=== PATIENT | female | born 1965 | race Caucasian/White ===

== ENCOUNTER 2018-12-04 09:39 | Emergency (ER) | payer OTHER ==
[2018-12-04] MEDS ORDERED: KETOROLAC 30 MG/ML INJ ONE (10:34)
--- NOTE | 2018-12-04 10:50 | RAD REPORT ---
EXAM DESCRIPTION: RAD - Ankle Left 3 View -12/04/2018 10:18 am CLINICAL HISTORY: Left ankle pain status post injury FINDINGS: No fracture or dislocation is seen.
--- NOTE | 2018-12-04 11:15 | ER ---
Nurse's Notes [facility] Name: Prabha Camejo Age: 53 yrs Sex: Female : 1965 Arrival Date: 12/04/2018 Time: 09:43 Bed 12 Private MD: Diagnosis: Contusion of left ankle Presentation: 12/04 09:48 Presenting complaint: Shut front door on left ankle 2 days ago, now c/o burning pain hb 10/10. Transition of care: patient was not received from another setting of care. Onset of symptoms was December 02, 2018. Risk Assessment: Do you want to hurt yourself or someone else? Patient reports no desire to harm self or others. Initial Sepsis Screen: Does the patient meet any 2 criteria? No. Patient's initial sepsis screen is negative. Does the patient have a suspected source of infection? No. Patient's initial sepsis screen is negative. Care prior to arrival: Medication(s) given: Motrin, at 0700. 09:48 Method Of Arrival: Ambulatory hb 09:48 Acuity: VIRGIL 4 hb Triage Assessment: 09:50 General: Appears in no apparent distress. Behavior is calm, cooperative. Pain: Pain hb currently is 10 out of 10 on a pain scale. EENT: No signs and/or symptoms were reported regarding the EENT system. Neuro: Level of Consciousness is awake, alert, obeys commands, Oriented to person, place, time, situation. Cardiovascular: Capillary refill < 3 seconds Patient's skin is warm and dry. Respiratory: Airway is patent Respiratory effort is even, unlabored, Respiratory pattern is regular, symmetrical. GI: No signs and/or symptoms were reported involving the gastrointestinal system. : No signs and/or symptoms were reported regarding the genitourinary system. Derm: Skin is intact, is healthy with good turgor, Bruising that is purple, left inner ankle. Musculoskeletal: Reports left ankle pain. 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 - Social history:: Smoking status: Patient uses tobacco products, smokes one-half pack cigarettes per day. - Ebola Screening: : No symptoms or risks identified at this time. Screenin:50 Abuse screen: Denies threats or abuse. Denies injuries from another. Nutritional hb screening: No deficits noted. Tuberculosis screening: No symptoms or risk factors identified. Fall Risk None identified. Assessment: 09:50 General: see triage assessment. hb 10:38 Reassessment: Patient appears in no apparent distress at this time. Patient and/or hb family updated on plan of care and expected duration. Pain level reassessed. Patient is alert, oriented x 3, equal unlabored respirations, skin warm/dry/pink. 11:22 Reassessment: Patient appears in no apparent distress at this time. Patient and/or hb family updated on plan of care and expected duration. Pain level reassessed. Patient is alert, oriented x 3, equal unlabored respirations, skin warm/dry/pink. Vital Signs: 09:50 BP 136 / 86; Pulse 84; Resp 16; Temp 97.7; Pulse Ox 100% on R/A; Weight 90.72 kg; hb Height 5 ft. 8 in. (172.72 cm); Pain 10/10; 09:50 Body Mass Index 30.41 (90.72 kg, 172.72 cm) hb ED Course: 09:43 Patient arrived in ED. rg4 09:49 Triage completed. hb 09:50 Arm band placed on. hb 09:50 Patient has correct armband on for positive identification. Call light in reach. hb 10:02 Gianfranco Espinoza PA is PHCP. jmm 10:02 Marcus Parisi MD is Attending Physician. jmm 10:09 Josh Martinez, HENRIK is Primary Nurse. sg 10:19 Ankle Left 3 View XRAY In Process Unspecified. EDMS 11:22 No provider procedures requiring assistance completed. Patient did not have IV access hb during this emergency room visit. Administered Medications: 10:38 Drug: Ketorolac 30 mg Route: IM; Site: right deltoid; hb 11:15 Follow up: Response: No adverse reaction hb Outcome: 11:13 Discharge ordered by MD. rhoades 11:22 Discharged to home ambulatory. hb 11:22 Condition: stable 11:22 Discharge instructions given to patient, Instructed on discharge instructions, follow up and referral plans. medication usage, Demonstrated understanding of instructions, follow-up care, medications, Prescriptions given X 1. 11:23 Patient left the ED. hb Signatures: Dispatcher [employer] EDJosh Hart RN RN sg Mickail, Joel, PA PA jmm Baxter, Heather, RN RN hb Garcia, Rubi rg4
--- NOTE | 2018-12-04 11:15 | EDPHYS ---
Physician Documentation [facility] Name: Prabha Camejo Age: 53 yrs Sex: Female : 1965 Arrival Date: 12/04/2018 Time: 09:43 Bed 12 Private MD: ED Physician Marcus Parisi HPI: 12/04 10:43 This 53 yrs old Female presents to ER via Ambulatory with complaints of Ankle jmm Injury. 10:43 The patient presents with an injury. Onset: The symptoms/episode began/occurred jmm acutely. Associated signs and symptoms: Pertinent positives: swelling, tingling. This is a 53 year old female with a history of depression, migraines, seizures, htn that presents to the ED with complaints of left ankle pain after accidently shutting the door on her foot. . 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 - Social history:: Smoking status: Patient uses tobacco products, smokes one-half pack cigarettes per day. - Ebola Screening: : No symptoms or risks identified at this time. ROS: 10:43 Constitutional: Negative for fever, chills, and weight loss, Cardiovascular: Negative jmm for chest pain, palpitations, and edema, Respiratory: Negative for shortness of breath, cough, wheezing, and pleuritic chest pain. 10:43 MS/extremity: Positive for ecchymosis, pain. 10:43 All other systems are negative. Exam: 10:43 Constitutional: This is a well developed, well nourished patient who is awake, alert, jmm and in no acute distress. Head/Face: atraumatic. Eyes: EOMI, no conjunctival erythema appreciated ENT: Moist Mucus Membranes Neck: Trachea midline, Supple Chest/axilla: Normal chest wall appearance and motion. Cardiovascular: Regular rate and rhythm. No edema appreciated Respiratory: Normal respirations, no respiratory distress appreciated Abdomen/GI: Non distended, soft Back: Normal ROM 10:43 Musculoskeletal/extremity: left medial malleolus is tender to palpation. . 10:43 Skin: ecchymosis noted to the left medial ankle. 10:43 Neuro: Orientation: is normal, Mentation: is normal, Memory: is normal. 10:43 Psych: Behavior/mood is pleasant, cooperative. Vital Signs: 09:50 BP 136 / 86; Pulse 84; Resp 16; Temp 97.7; Pulse Ox 100% on R/A; Weight 90.72 kg; hb Height 5 ft. 8 in. (172.72 cm); Pain 12/30; 09:50 Body Mass Index 30.41 (90.72 kg, 172.72 cm) hb MDM: 10:15 Patient medically screened. [facility] 11:09 Data reviewed: vital signs, nurses notes. Counseling: I had a detailed discussion with [facility] the patient and/or guardian regarding: the historical points, exam findings, and any diagnostic results supporting the discharge/admit diagnosis, radiology results, the need for outpatient follow up, to return to the emergency department if symptoms worsen or persist or if there are any questions or concerns that arise at home. ED course: Imaging studies negative. Patient advised to follow up with pcp for reevaluation. Patient understood and agrees with the plan of care. . 12/04 09:51 Order name: Ankle Left 3 View XRAY; Complete Time: 10:52 hb 12/04 10:51 Order name: Antwan wrap-joint; Complete Time: 11:02 [facility] Administered Medications: 10:38 Drug: Ketorolac 30 mg Route: IM; Site: right deltoid; 11:15 Follow up: Response: No adverse reaction hb Disposition: 12/04/18 11:13 Discharged to Home. Impression: Contusion of left ankle. - Condition is Stable. - Discharge Instructions: Ankle Pain. - Prescriptions for orphenadrine citrate 100 mg Oral Tablet Sustained Release - take 1 tablet by ORAL route 2 times per day As needed; 20 tablet. - Medication Reconciliation Form, Thank You Letter, Antibiotic Education, Prescription Opioid Use form. - Follow up: Private Physician; When: 2 - 3 days; Reason: Recheck today's complaints, Continuance of care, Re-evaluation by your physician. Addendum: 12/06/2018 09:51 Co-signature as Attending Physician, Marcus Parisi MD I agree with the assessment and k dr plan of care. Signatures: Dispatcher [employer] EDMS Marcus Parisi MD MD [facility] Gianfranco Espinoza PA PA jmm Baxter, Heather, RN RN Corrections: (The following items were deleted from the chart) 12/04 11:23 11:13 12/04/2018 11:13 Discharged to Home. Impression: Contusion of left ankle. hb Condition is Stable. Forms are Medication Reconciliation Form, Thank You Letter, Antibiotic Education, Prescription Opioid Use. Follow up: Private Physician; When: 2 - 3 days; Reason: Recheck today's complaints, Continuance of care, Re-evaluation by your physician. [place]
[2018-12-04 11:46] VITALS: BP 136/86; TEMP 97.7; O2SAT 100
== END 2018-12-04 11:23 | disposition home or self-care (01) ==
LOC: ER 09:39
DX: S90.02XA Contusion of left ankle, initial encounter (principal); W22.8XXA Striking against or struck by other objects, initial encounter; Y93.9 Activity, unspecified; Y92.9 Unspecified place or not applicable; Z88.0 Allergy status to penicillin; I10 Essential (primary) hypertension; F32.9 Major depressive disorder, single episode, unspecified; F17.210 Nicotine dependence, cigarettes, uncomplicated
CPT/HCPCS: 96372; 99283

== ENCOUNTER 2020-05-28 18:02 | Inpatient (IN) | payer BC ==
--- OUTSIDE RECORDS SUMMARY | 2020-05-28 18:05 | XMS REPORT | Continuity of Care Document ---
:1965 Author Organization [facility] t Address [address] [place] [address] Care Team Providers Name Role Phone Provider, Urgent Care Attending Clinician Unavailable Lab, Fam Pob I Attending Clinician Unavailable Lab, Covid Attending Clinician Unavailable Problems This patient has no known problems. Allergies, Adverse Reactions, Alerts This patient has no known allergies or adverse reactions. Medications This patient has no known medications. Procedures This patient has no known procedures. Encounters Start End Encounter Admission Attending Care Care Encounter Source Date/Time Date/Time Type Type Clinicians Facility Department ID 2020-04-16 2020-04-16 Urgent Provider, [facility] [id number] 17:50:18 18:10:18 Care [facility] [id number] [facility] [id number] Professio [id number] [address] 2020-03-09 2020-03-09 Telephone Provider, DALIA [id number] 00:00:00 00:00:00 Ang Urgent EULA [id number] [facility] [id number] 2020-03-07 2020-03-07 Laboratory Lab, Adc [facility] [id number] 11:36:20 12:08:46 Only Fam Pob I Health [id number] [place] [id number] Professio [phone] nal [address] 2020-03-07 2020-03-07 Letter Lab, Pcp [facility] [id number] 00:00:00 00:00:00 (Out) [facility] [id number] [place] [id number] [facility] [phone] [facility] [address] Results This patient has no known results.
[2020-05-28] MEDS ORDERED: ASPIRIN 81 MG CHEWABLE TABLET ONE (19:22)
[2020-05-28] MEDS ORDERED: LORazepam 2 MG/ML VIAL ONE (19:22)
[2020-05-28] MEDS ORDERED: METOPROLOL TAR 25 MG TAB ONE (19:23)
[2020-05-28] MEDS ORDERED: ONDANSETRON 4 MG/2 ML VIAL ONE (19:23)
[2020-05-28] MEDS ORDERED: FAMOTIDINE 20 MG/2 ML VIAL IV ONE (19:23)
[2020-05-28] MEDS ORDERED: MORPHINE 2 MG/ML SYR ONE (19:23)
[2020-05-28 19:25] LABS: Absolute Lymphocytes (CBC) 2.7 K/uL (0.7-4.9); Basophils % 0.9 % (0-1.3); Hematocrit 41.9 % (36.0-45.0); MPV 9.8 fL (7.6-11.3); RBC Red Blood Cell Count 4.56 M/uL (3.86-4.86)
[2020-05-28 19:29] LABS: Protime INR 1.01
[2020-05-28] MEDS ORDERED: ASPIRIN EC 81 MG TAB PO ONE (19:41)
[2020-05-28 19:42] LABS: ALT/SGPT 24 U/L (12-78); AST/SGOT 14 U/L (15-37); Albumin 3.9 g/dL (3.4-5.0); Alkaline Phosphatase 136 U/L (45-117); BUN Blood Urea Nitrogen 11 mg/dL (7-18); Bicarbonate 26 mmol/L (21-32); Bilirubin Direct < 0.1 mg/dL (0-0.2); Bilirubin Total 0.1 mg/dL (0.2-1.0); Glucose Level 85 mg/dL (74-106); Lipase 98 U/L (73-393); Magnesium 2.1 mg/dL (1.8-2.4); NT PRO-BNP 13 pg/mL (<125); Potassium 3.5 mmol/L (3.5-5.1); Protein, Total 7.6 g/dL (6.4-8.2); Sodium Level 138 mmol/L (136-145); Troponin (Emerg Dept Use Only) < 0.02 ng/mL (0.0-0.045)
--- NOTE | 2020-05-28 19:57 | RAD REPORT ---
EXAM DESCRIPTION: RAD - Chest Single View - 05/28/2020 7:40 pm CLINICAL HISTORY: CHEST PAIN Chest pain. COMPARISON: No comparisons FINDINGS: Portable technique limits examination quality. Calcified granuloma is present right mid lung. The lungs otherwise clear. The heart is normal in size . No displaced fractures. IMPRESSION: No acute intrathoracic process suspected.
--- NOTE | 2020-05-28 20:03 | EDPHYS ---
Physician Documentation [facility] Name: Prabha Camejo Age: 54 yrs Sex: Female : 1965 Arrival Date: 05/28/2020 Time: 18:06 Bed 17 Private MD: ED Physician Aguila Fitzpatrick HPI: 05/28 18:47 This 54 yrs old Female presents to ER via Ambulatory with complaints of Chest pao Pain, Abnormal EKG. 18:47 The patient or guardian reports chest pain that is located primarily in the substernal pao area, anterior chest wall, bilaterally. Onset: 2 day(s) ago. The pain radiates to right jaw. Associated signs and symptoms: Pertinent positives: lightheadedness, near-syncope, shortness of breath. The chest pain is described as a heaviness, a pressure. Duration: The patient or guardian reports multiple episodes, with no pattern. Modifying factors: The symptoms are alleviated by nothing. the symptoms are aggravated by activity, breathing, exertion. Severity of pain: At its worst the pain was moderate in the emergency department the pain is unchanged. 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 - Social history:: Smoking status: Patient reports the use of cigarette tobacco products, smokes one-half pack cigarettes per day. - Family history:: not pertinent. ROS: 18:47 Constitutional: Negative for fever, chills, and weight loss, Eyes: Negative for injury, pao pain, redness, and discharge, ENT: Negative for injury, pain, and discharge, Neck: Negative for injury, pain, and swelling, Abdomen/GI: Negative for abdominal pain, nausea, vomiting, diarrhea, and constipation, Back: Negative for injury and pain, : Negative for injury, bleeding, discharge, and swelling, MS/Extremity: Negative for injury and deformity, Skin: Negative for injury, rash, and discoloration, Neuro: Negative for headache, weakness, numbness, tingling, and seizure, Psych: Negative for depression, anxiety, suicide ideation, homicidal ideation, and hallucinations, Allergy/Immunology: Negative for hives, rash, and allergies, Endocrine: Negative for neck swelling, polydipsia, polyuria, polyphagia, and marked weight changes, Hematologic/Lymphatic: Negative for swollen nodes, abnormal bleeding, and unusual bruising. 18:47 Cardiovascular: Positive for chest pain, of the chest. 18:47 Respiratory: Positive for shortness of breath, on exertion. Exam: 18:47 Constitutional: This is a well developed, well nourished patient who is awake, alert, pao and in no acute distress. Head/Face: Normocephalic, atraumatic. Eyes: Pupils equal round and reactive to light, extra-ocular motions intact. Lids and lashes normal. Conjunctiva and sclera are non-icteric and not injected. Cornea within normal limits. Periorbital areas with no swelling, redness, or edema. ENT: Nares patent. No nasal discharge, no septal abnormalities noted. Tympanic membranes are normal and external auditory canals are clear. Oropharynx with no redness, swelling, or masses, exudates, or evidence of obstruction, uvula midline. Mucous membranes moist. Neck: Trachea midline, no thyromegaly or masses palpated, and no cervical lymphadenopathy. Supple, full range of motion without nuchal rigidity, or vertebral point tenderness. No Meningismus. Chest/axilla: Normal chest wall appearance and motion. Nontender with no deformity. No lesions are appreciated. Cardiovascular: Regular rate and rhythm with a normal S1 and S2. No gallops, murmurs, or rubs. Normal PMI, no JVD. No pulse deficits. Respiratory: Lungs have equal breath sounds bilaterally, clear to auscultation and percussion. No rales, rhonchi or wheezes noted. No increased work of breathing, no retractions or nasal flaring. Abdomen/GI: Soft, non-tender, with normal bowel sounds. No distension or tympany. No guarding or rebound. No evidence of tenderness throughout. Back: No spinal tenderness. No costovertebral tenderness. Full range of motion. Skin: Warm, dry with normal turgor. Normal color with no rashes, no lesions, and no evidence of cellulitis. MS/ Extremity: Pulses equal, no cyanosis. Neurovascular intact. Full, normal range of motion. Neuro: Awake and alert, GCS 15, oriented to person, place, time, and situation. Cranial nerves II-XII grossly intact. Motor strength 5/5 in all extremities. Sensory grossly intact. Cerebellar exam normal. Normal gait. Psych: Awake, alert, with orientation to person, place and time. Behavior, mood, and affect are within normal limits. 18:47 Musculoskeletal/extremity: DVT Exam: No signs of deep vein thrombosis. no pain, no swelling, no tenderness, negative Homans' sign noted on exam, no appreciated bluish discoloration, no erythema, no increased warmth. Vital Signs: 18:11 BP 125 / 89; Pulse 81; Resp 17; Temp 97.3; Pulse Ox 100% ; Weight 97.52 kg; Height 5 ll1 ft. 8 in. (172.72 cm); Pain 8/10; 21:31 Weight 97.93 kg; ll2 21:35 BP 121 / 75; Pulse 62; Resp 16; Pulse Ox 99% on R/A; ll2 23:00 BP 134 / 88; Pulse 69; Resp 18; Pulse Ox 98% on R/A; ll2 0309 01:00 BP 133 / 61; Pulse 71; Resp 12; Pulse Ox 97% on R/A; ll2 02:30 BP 113 / 78; Pulse 66; Resp 14; Pulse Ox 99% on R/A; ll2 03:30 BP 118 / 75; Pulse 63; Resp 17; Pulse Ox 96% on R/A; ll2 08 21:31 Body Mass Index 32.83 (97.93 kg, 172.72 cm) ll2 MDM: 05/28 18:22 Patient medically screened. pao 18:51 Differential diagnosis: abnormal EKG, acute myocardial infarction, acute pericarditis, pao cholecystitis, Cholelithiasis hiatal hernia, myocarditis, pancreatitis, peptic ulcer disease, pneumonia, pulmonary embolus, stable angina, thoracic aortic disection, unstable angina. HEART Score: History: Highly Suspicious (2), ECG: Non specific repolarization disturbance / LBTB / PM (1), Age: > 45 and < 65 years (1), Risk Factors: > or = 3 Risk factors for atherosclerotic disease (2), [Hypertension] [Active Smoker] [+ Family HX] [Obesity] Troponin: < or = 1 x Normal Limit (0). The patient was given aspirin in the Emergency Department. The patient's deep vein thrombosis risk score was calculated as follows: Total Score: 0. This patient was found to be at low risk for a deep vein thrombosis by using the Well's assessment criteria. The patient's pulmonary embolism risk score was calculated as follows: Total Score: 0-2 points. This patient was found to be at low risk for a pulmonary embolism by using the Well's assessment criteria. MALINDA Risk Score: 1 - Three or more CAD risk factors, [Family Hx], [HTN], [Elevated Cholesterol], [Active Smoker]. Data reviewed: vital signs, nurses notes, lab test result(s), EKG, radiologic studies, CT scan, plain films. 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 Test interpretation: by ED physician or midlevel provider: ECG, plain radiologic studies. Counseling: I had a detailed discussion with the patient and/or guardian regarding: the historical points, exam findings, and any diagnostic results supporting the discharge/admit diagnosis, the presence of at least one elevated blood pressure reading (>120/80) during this emergency department visit, lab results, radiology results, the need for further work-up and treatment in the hospital. 05/28 18:46 Order name: Basic Metabolic Panel [facility] 05/28 18:46 Order name: CBC with Diff [facility] 05/28 18:46 Order name: LFT's 05/28 18:46 Order name: Magnesium [facility] 05/28 18:46 Order name: NT PRO-BNP [facility] 05/28 18:46 Order name: PT-INR; Complete Time: 19:58 [facility] 05/28 18:46 Order name: Troponin (emerg Dept Use Only); Complete Time: 19:58 [facility] 05/28 18:46 Order name: Lipase; Complete Time: 19:58 [facility] 05/28 18:47 Order name: Basic Metabolic Panel; Complete Time: 19:58 EDDC 05/28 18:47 Order name: CBC with Automated Diff; Complete Time: 19:58 EDMS 05/28 18:47 Order name: Liver (Hepatic) Function; Complete Time: 19:58 EDMS 05/28 18:47 Order name: Magnesium; Complete Time: 19:58 EDDC 05/28 18:47 Order name: NT PRO-BNP; Complete Time: 19:58 [facility] 05/28 18:46 Order name: XRAY Chest (1 view); Complete Time: 19:58 [facility] 05/28 18:46 Order name: EKG; Complete Time: 18:47 [facility] 05/28 20:22 Order name: Chest Abd Pelvis Wo Con; Complete Time: 21:01 [facility] 05/28 20:32 Order name: SARS-COV-2 RT PCR; Complete Time: 21:01 [facility] 05/28 21:21 Order name: CONS Physician Consult [facility] 05/29 02:04 Order name: Troponin I [facility] 05/28 18:46 Order name: Cardiac monitoring; Complete Time: 19:28 [facility] 05/28 18:46 Order name: EKG - Nurse/Tech; Complete Time: 19:28 [facility] 05/28 18:46 Order name: IV Saline Lock; Complete Time: 19:28 [facility] 05/28 18:46 Order name: Labs collected and sent; Complete Time: 19:28 [facility] 05/28 18:46 Order name: O2 Per Protocol; Complete Time: 19:28 [facility] 05/28 18:46 Order name: O2 Sat Monitoring; Complete Time: 19:28 [facility] 05/28 20:24 Order name: Bilateral blood pressure; Complete Time: 01:39 [facility] Administered Medications: Discontinued: Heparin ([place] Drip) 12 units/kg/hr - (HEParin 29450 units, D5W 500 ml) IV at calculated rate Per protocol; Max initial rate 1000 units/hr 19:36 Drug: morphine 2 mg Route: IVP; Site: left antecubital; ll2 19:36 Drug: Zofran (Ondansetron) 4 mg Route: IVP; Site: left antecubital; ll2 19:37 Drug: Aspirin Chewable Tablet 324 mg Route: PO; ll2 19:37 Drug: Pepcid 20 mg Route: IVP; Site: left antecubital; ll2 19:37 Drug: Lopressor 25 mg Route: PO; ll2 19:37 Drug: Ativan 1 mg Route: IVP; Site: left antecubital; ll2 21:44 Drug: Heparin (SD-Bolus No thrombolytic) - HEParin 60 units/kg {Co-Signature: mg2 ll2 (Ruddy Mckeon RN).} Route: IVP; Site: right hand; 22:45 Follow up: Response: Other ll2 21:45 Drug: Heparin (SD Drip) 12 units/kg/hr - (HEParin 96868 units, D5W 500 ml) ll2 {Co-Signature: mg2 (Ruddy Mckeon RN).} Route: IV; Rate: calculated rate; Site: right hand; 05/29 01:39 Not Given (Patient Refused): Nicoderm CQ 21 mg/24 hr 1 patches Transdermal once; if ll2 needed for tobacco withdrawal Disposition: 05/28/20 20:02 Hospitalization ordered by Sheldon Rodriguez for Observation. Preliminary diagnosis are Angina pectoris, Essential (primary) hypertension, Anxiety disorder, unspecified, Tobacco abuse counseling, Tobacco use. - Bed requested for Telemetry/MedSurg (observation). - Status is Observation. ll2 - Condition is Stable. - Problem is new. - Symptoms have improved. Signatures: Dispatcher [employer] EDMS Aguila Fitzpatrick MD MD cha Garcia, Cindy, RN RN Rosy Hines RN RN ll2 Kee Sutton RN RN ll1 Ruddy Mckeon RN mg2 Corrections: (The following items were deleted from the chart) 05/28 19:55 18:47 CORONAVIRUS+MR.LAB.BRZ ordered. EDDC EDMS 20:22 18:47 Angio Aorta For Dissection+CT.RAD.BRZ ordered. [facility] EDMS 23:04 20:02 Hospitalization Ordered by Sheldon Rodriguez for Observation. Preliminary diagnosis cg is Angina pectoris; Essential (primary) hypertension; Anxiety disorder, unspecified; Tobacco abuse counseling; Tobacco use. Bed requested for Telemetry/MedSurg (observation). Status is Observation. Condition is Stable. Problem is new. Symptoms have improved. [facility] 05/29 03:00 03/08 23:04 05/28/2020 20:02 Hospitalization Ordered by Sheldon Rodriguez for Observation. cg Preliminary diagnosis is Angina pectoris; Essential (primary) hypertension; Anxiety disorder, unspecified; Tobacco abuse counseling; Tobacco use. Bed requested for [facility] ER HOLD. Status is Observation. Condition is Stable. Problem is new. Symptoms have improved. 05/29 04:28 03:00 05/28/2020 20:02 Hospitalization Ordered by Sheldon Rodriguez for Observation. ll2 Preliminary diagnosis is Angina pectoris; Essential (primary) hypertension; Anxiety disorder, unspecified; Tobacco abuse counseling; Tobacco use. Bed requested for Telemetry/MedSurg (observation). Status is Observation. Condition is Stable. Problem is new. Symptoms have improved. cg
--- NOTE | 2020-05-28 20:03 | ER ---
Nurse's Notes [facility] Name: Prabha Camejo Age: 54 yrs Sex: Female : 1965 Arrival Date: 05/28/2020 Time: 18:06 Bed 17 Private MD: Diagnosis: Angina pectoris;Essential (primary) hypertension;Anxiety disorder, unspecified;Tobacco abuse counseling;Tobacco use Presentation: 05/28 18:11 Chief complaint: Patient states: CP and SOB for at least month. Was doing her pre-op ll1 today for cardiac cath on , EKG was abnormal so she was sent here for further eval. Coronavirus screen: Client denies travel out of the [place] in the last 14 days. At this time, the client does not indicate any symptoms associated with coronavirus-19. Ebola Screen: Patient denies travel to an Ebola-affected area in the 21 days before illness onset. Initial Sepsis Screen: Does the patient meet any 2 criteria? No. Patient's initial sepsis screen is negative. Does the patient have a suspected source of infection? No. Patient's initial sepsis screen is negative. Risk Assessment: Do you want to hurt yourself or someone else? Patient reports no desire to harm self or others. Onset of symptoms was April 30, 2020. 18:11 Method Of Arrival: Ambulatory ll1 18:11 Acuity: VIRGIL 3 ll1 MANAGER DOMESTIC: 05/29 04:28 LMP N/A - Post-menopause ll2 Historical: - Allergies: 05/28 18:14 PENICILLINS; ll1 - PMHx: 18:14 Depression; Hypertension; Migraines; Seizures; Anxiety; ll1 - PSHx: 18:14 ; ll1 - Immunization history:: Flu vaccine is not up to date. - Social history:: Smoking status: Patient reports the use of cigarette tobacco products, smokes one-half pack cigarettes per day. - Family history:: not pertinent. Screenin:35 Abuse screen: Denies threats or abuse. Nutritional screening: No deficits noted. ll2 Tuberculosis screening: No symptoms or risk factors identified. Fall Risk None identified. Assessment: 21:32 General: Appears in no apparent distress. Behavior is calm, cooperative, appropriate ll2 for age. Pain: Pain does not radiate. Pain began suddenly. Neuro: Level of Consciousness is awake, alert, obeys commands, Oriented to person, place, time, situation. Cardiovascular: Patient's skin is warm and dry. Respiratory: Airway is patent Respiratory effort is even, unlabored, Respiratory pattern is regular, symmetrical. GI: No signs and/or symptoms were reported involving the gastrointestinal system. : No signs and/or symptoms were reported regarding the genitourinary system. EENT: No signs and/or symptoms were reported regarding the EENT system. Derm: Skin is intact, is healthy with good turgor, Skin is dry, Skin is pink, warm \T\ dry. 05/29 01:52 Reassessment: spoke to pt's mother over the phone who said pt is upset and worried then bb I spoke to the pt who is extremely upset and refusing any further interventions from this RN offered pt a room upstairs and she refused. 02:52 Reassessment: Patient and/or family updated on plan of care and expected duration. Pain ll2 level reassessed. Patient is alert, oriented x 3, equal unlabored respirations, skin warm/dry/pink. 04:20 Reassessment: Patient and/or family updated on plan of care and expected duration. Pain ll2 level reassessed. Patient is alert, oriented x 3, equal unlabored respirations, skin warm/dry/pink. report called to BASIL dey pt wheeled to floor via wheelchair with tech. Vital Signs: 05/28 18:11 BP 125 / 89; Pulse 81; Resp 17; Temp 97.3; Pulse Ox 100% ; Weight 97.52 kg; Height 5 ll1 ft. 8 in. (172.72 cm); Pain 8/10; 21:31 Weight 97.93 kg; ll2 21:35 BP 121 / 75; Pulse 62; Resp 16; Pulse Ox 99% on R/A; ll2 23:00 BP 134 / 88; Pulse 69; Resp 18; Pulse Ox 98% on R/A; ll2 05/29 01:00 BP 133 / 61; Pulse 71; Resp 12; Pulse Ox 97% on R/A; ll2 02:30 BP 113 / 78; Pulse 66; Resp 14; Pulse Ox 99% on R/A; ll2 03:30 BP 118 / 75; Pulse 63; Resp 17; Pulse Ox 96% on R/A; ll2 05/28 21:31 Body Mass Index 32.83 (97.93 kg, 172.72 cm) ll2 ED Course: 05/28 14:35 EKG done, by ED staff, reviewed by Aguila Fitzpatrick MD. jp3 18:06 Patient arrived in ED. mr 18:14 Triage completed. ll1 18:15 Arm band placed on. ll1 18:22 Aguila Fitzpatrick MD is Attending Physician. pao 19:02 Rosy Hines, BASIL is Primary Nurse. ll2 19:10 Initial lab(s) drawn, by tx, sent to lab. COVID swab sent to lab. Inserted saline lock: jp3 20 gauge in left antecubital area, using aseptic technique. Blood collected. Patient maintains SpO2 saturation greater than 95% on room air. 19:27 Placed in gown. Bed in low position. Call light in reach. Side rails up X 1. Warm jp3 blanket given. Verbal reassurance given. ekg monitor on. Pulse ox on. NIBP on. 19:40 XRAY Chest (1 view) In Process Unspecified. EDMS 20:00 Sheldon Rodriguez is Hospitalizing Provider. pao 20:22 Chest Abd Pelvis Wo Con In Process Unspecified. EDMS 03 04:24 No provider procedures requiring assistance completed. Patient admitted, IV remains in ll2 place. Administered Medications: Discontinued: Heparin ([place] Drip) 12 units/kg/hr - (HEParin 09600 units, D5W 500 ml) IV at calculated rate Per protocol; Max initial rate 1000 units/hr 05/28 19:36 Drug: morphine 2 mg Route: IVP; Site: left antecubital; ll2 19:36 Drug: Zofran (Ondansetron) 4 mg Route: IVP; Site: left antecubital; ll2 19:37 Drug: Aspirin Chewable Tablet 324 mg Route: PO; ll2 19:37 Drug: Pepcid 20 mg Route: IVP; Site: left antecubital; ll2 19:37 Drug: Lopressor 25 mg Route: PO; ll2 19:37 Drug: Ativan 1 mg Route: IVP; Site: left antecubital; ll2 21:44 Drug: Heparin ([place]-Bolus No thrombolytic) - HEParin 60 units/kg {Co-Signature: mg2 ll2 (Ruddy Gardose RN).} Route: IVP; Site: right hand; 22:45 Follow up: Response: Other ll2 21:45 Drug: Heparin ([place] Drip) 12 units/kg/hr - (HEParin 18459 units, D5W 500 ml) ll2 {Co-Signature: mg2 (Ruddy Mckeon RN).} Route: IV; Rate: calculated rate; Site: right hand; 05/29 01:39 Not Given (Patient Refused): Nicoderm CQ 21 mg/24 hr 1 patches Transdermal once; if ll2 needed for tobacco withdrawal Outcome: 05/28 20:02 Decision to Hospitalize by Provider. pao 05/29 04:25 Admitted to Tele accompanied by tech, via wheelchair, Report called to basil dey ll2 Condition: stable Instructed on the need for admit. 04:28 Patient left the ED. ll2 Signatures: Dispatcher [employer] Aguila Lou MD MD cha Rivera, Mary mr Shyanne Aguilera RN RN Malik Patiño jp3 Rosy Hines RN RN ll2 Kee Sutton RN RN ll1 Ruddy Mckeon RN mg2 Corrections: (The following items were deleted from the chart) 01:51 01:50 Reassessment: bautista baum
--- NOTE | 2020-05-28 20:32 | RAD REPORT ---
EXAM DESCRIPTION: CT - Chest Abd Pelvis Wo Con - 05/28/2020 8:20 pm CLINICAL HISTORY: Chest and abdomen pain. Dissection;Dyspnea;PE COMPARISON: No comparisons TECHNIQUE: A noncontrast examination was performed. All CT scans are performed using dose optimization technique as appropriate and may include automated exposure control or mA/KV adjustment according to patient size. FINDINGS: The lungs are clear.Benign calcified right upper lobe granuloma.No pleural or pericardial effusion.No intrathoracic adenopathy. The liver, spleen, pancreas, adrenal glands and kidneys are within normal limits. No bowel obstruction, free air, free fluid or abscess. Normal appendix. No pathologic lymphadenopath y in the abdomen or pelvis. Moderate degenerative change L5-S1. IMPRESSION: No acute abnormality detected.
[2020-05-28] MEDS ORDERED: HEPARIN/D5W 25,000 UNIT/500 ML BAG IV ONE (21:49)
[2020-05-28] MEDS ORDERED: HEPARIN 5000 UNIT/ML 1 ML VIAL ONE (21:49)
--- NOTE | 2020-05-28 22:31 | P.HP ---
Certification for Inpatient Patient admitted to: Inpatient With expected LOS: >2 Midnights Patient will require the following post-hospital care: None Practitioner: I am a practitioner with admitting privileges, knowledge of patient current condition, hospital course, and medical plan of care. Services: Services provided to patient in accordance with Admission requirements found in Title 42 Section 412.3 of the Code of Federal Regulations <Hank Anderson - Last Filed: 05/29/20 01:28> Patient History Date of Service: 05/29/20 Primary Care Provider: Dr. Nixon Reason for admission: unstable angina History of Present Illness: Ms. Camejo is a 54 yo F with a history of anxiety, epilepsy (seizure free for 20 years) here for 8/10 sternal chest pain she describes as pressure and tightness and radiating to right jaw and to left shoulder. She has been having this pain for a few months but thought it was related to anxiety or heartburn. Onset of pain occasionally occurs at rest. She reports increased SOB, LENTZ and recent swelling of her ankles. SHe denies N/V, night sweats, and chills. She currently smokes 10-15 cigarettes a day. She saw Dr. Burroughs Thursday and was schedule for a cath this . She was recently started on metoprolol 50mg BID and HCTZ 12.5mg. Initial troponin negative. EKG concerning for ischemic changes. CXR and CT scan without findings. Patient was on heparin drip and reported coughing up blood and blood clots coming from nose. discontinued heparin drip. Home medications list reviewed: No - Past Medical/Surgical History Has patient received pneumonia vaccine in the past: No Diabetic: No -: epilepsy (seizure free for 20 years) -: anxiety -: 2 c- section - Family History Father -: Heart disease Mother -: Other (see notes) Notes: arrhythmia - Social History Smoking Status: Heavy Tobacco smoker (>10 cigarettes/day) Counseled patient to stop smoking for: less than 10 minutes Smoking therapy provided: Yes Patient receptive to therapy: No Alcohol use: No CD- Drugs: No Caffeine use: Yes <Hank Anderson - Last Filed: 05/29/20 01:28> Date of Service: 05/29/20 <jazmin farley - Last Filed: 05/29/20 17:06> Allergies Penicillins Allergy (Verified 05/28/20 16:07) Itching/Hives/Rash Home Medications: Carbamazepine [Tegretol Xr] 1 tab PO BID 05/29/20 Metoprolol Tartrate 1 tab PO BID 05/29/20 Sertraline [Zoloft] 200 mg PO DAILY 05/29/20 hydroCHLOROthiazide [Hydrochlorothiazide] 1 tab PO DAILY 05/29/20 Review of Systems General: Unremarkable Eyes: Unremarkable ENT: Unremarkable Respiratory: Shortness of Breath, SOB with Excertion, As per HPI Cardiovascular: Chest Pain, Edema, As per HPI Gastrointestinal: Unremarkable Genitourinary: Unremarkable Musculoskeletal: Unremarkable Integumentary: Unremarkable Neurological: Unremarkable Lymphatics: Unremarkable <Hank Anderson - Last Filed: 05/29/20 01:28> Physical Examination - Vital Signs Temperature: 97.3 F Blood Pressure: 125/89 Pulse: 81 Respirations: 17 Pulse Ox (%): 100 - Physical Exam General: Alert, In no apparent distress, Oriented x3, Cooperative HEENT: Atraumatic, Normocephalic, PERRLA, Mucous membr. moist/pink, EOMI, Sclerae nonicteric Neck: Supple, 2+ carotid pulse no bruit, JVD not distended, No Thyromegaly, No LAD Respiratory: Clear to auscultation bilaterally, Normal air movement Cardiovascular: No edema, Normal pulses, Regular rate/rhythm, Normal S1 S2, No gallops, No rubs, No murmurs Capillary refill: <2 Seconds Gastrointestinal: Normal bowel sounds, Soft and benign, Non-distended, No ascites, No tenderness, No masses, No rebound, No guarding Musculoskeletal: No clubbing, No swelling, No contractures, No erythema, No tenderness, No warmth Integumentary: No rashes, No breakdown, No significant lesion, No tenderness/swelling, No erythema, No warmth, No cyanosis Neurological: Normal gait, Normal speech, Normal strength at 5/5 x4 extr, Normal tone, Sensation intact, Cranial nerves 3-12 intact, Normal affect Lymphatics: No axilla or inguinal lymphadenopathy - Studies Laboratory Data (last 24 hrs) 05/28/20 19:10: PT 11.6, INR 1.01 05/28/20 19:10: WBC 7.70, Hgb 14.4, Hct 41.9, Plt Count 266 03/08/21 19:10: Sodium 138, Potassium 3.5, BUN 11, Creatinine 0.46 L, Glucose 85, Magnesium 2.1, Total Bilirubin 0.1 L, AST 14 L, ALT 24, Alkaline Phosphatase 136 H, Lipase 98 <Hank Anderson - Last Filed: 05/29/20 01:28> - Studies Laboratory Data (last 24 hrs) 05/28/20 19:10: PT 11.6, INR 1.01 05/28/20 19:10: WBC 7.70, Hgb 14.4, Hct 41.9, Plt Count 266 05/28/20 19:10: Sodium 138, Potassium 3.5, BUN 11, Creatinine 0.46 L, Glucose 85, Magnesium 2.1, Total Bilirubin 0.1 L, AST 14 L, ALT 24, Alkaline Phosphatase 136 H, Lipase 98 <jazmin farley - Last Filed: 05/29/20 17:06> Assessment and Plan - Problems (Diagnosis) (1) Chest pain Current Visit: Yes Status: Acute Plan: received ASA, metoprolol and heparin in the ER patient then coughing up blood with heparin so discontinued. cardiology consulted PRN ntg and morphine for chest pain will restart home medications - metroprolol 50 mg BID and HCTZ 12.5mg started atorvastatin 40mg Qualifiers: Chest pain type: unspecified Qualified Code(s): R07.9 - Chest pain, unspecified (2) Anxiety Current Visit: Yes Status: Chronic Plan: will continue home medications Discharge Plan: Home Plan to discharge in: 48 Hours - Advance Directives Does patient have a Living Will: No Does patient have a Durable POA for Healthcare: No - Code Status/Comfort Care Code Status Assessed: Yes (full code ) Critical Care: No Time Spent Managing Pts Care (In Minutes): 70 <Hank Anderson - Last Filed: 05/29/20 01:28> Physician Review: Patient Assessed, Agree with Above Assessment and Plan Physician Review Additional Text: Chest pain. Hemoptysis. History of the epilepsy. Plan: Trend troponin Cardiology consult NTG p.r.n. Metoprolol Resume antiepileptics <jazmin farley - Last Filed: 05/29/20 17:06>
[2020-05-28] MEDS ORDERED: NITROGLYCERIN 0.4 MG/TAB SL PRN (23:26)
[2020-05-28] MEDS ORDERED: ONDANSETRON 4 MG/2 ML VIAL IV PRN (23:26)
[2020-05-29] MEDS ORDERED: MORPHINE 2 MG/ML SYR ONE (00:15)
[2020-05-29 03:40] VITALS: BMI 33.3
[2020-05-29] MEDS: MORPHINE 2 MG/ML SYR IV PRN ×4 (04:35→22:18)
[2020-05-29 06:05] LABS: Urine Appearance CLEAR; Urine Bilirubin NEGATIVE (NEG); Urine Blood NEGATIVE (NEG); Urine Color YELLOW; Urine Glucose NEGATIVE (NEG); Urine Protein NEGATIVE (NEG); Urine Specific Gravity >=1.030 (1.005-1.030); Urine Urobilinogen 0.2 mg/dL (0.2-1.0)
[2020-05-29 06:06] LABS: Urine Microscopic Reflex NO UMIC
[2020-05-29] MEDS ORDERED: INFLUENZA VACCINE (for 3y+) 0.5 ML DOSE IMVAC ONE (08:00)
[2020-05-29] MEDS: METOPROLOL TAR 50 MG TAB PO SCH ×2 (08:11→20:24)
[2020-05-29] MEDS ORDERED: METOPROLOL TAR 50 MG TAB PO SCH (09:00)
[2020-05-29] MEDS: CARBAMAZEPINE 200 MG PO SCH ×2 (09:00→20:24)
[2020-05-29] MEDS: SERTRALINE HCL 100 MG TAB PO SCH (09:22)
[2020-05-29] MEDS: hydroCHLOROthiazide 12.5 MG CAP PO SCH (09:22)
[2020-05-29 09:56] LABS: BUN Blood Urea Nitrogen 11 mg/dL (7-18); Bicarbonate 29 mmol/L (21-32); Glucose Level 97 mg/dL (74-106); Potassium 3.9 mmol/L (3.5-5.1); Sodium Level 140 mmol/L (136-145); Troponin I < 0.02 ng/mL (0.0-0.045)
[2020-05-29] MEDS ORDERED: POTASSIUM CL SA 10 MEQ TAB PO ONE (10:00)
--- NOTE | 2020-05-29 11:03 | CON ---
Date of Consultation: 05/29/2020 Reason For Consultation: Unstable angina and abnormal EKG.. History Of Present Illness: Ms. Camejo is a 54-year-old woman who basically has a history of seizure disorder, chronic pain, depression. Had seen Dr. Burroughs, my partner in the office recently and was set up for an outpatient heart catheterization on 05/31/2020, but continued to have chest pain, came into the emergency room with abnormal EKG consistent with possible anterior ischemia. Heparin was st arted, however, she developed hemoptysis after the heparin was given. This was stopped this morning. She continues to have intermittent chest pain with and without exertion. Denies nausea, vomiting, diaphoresis, PND, orthopnea, pedal edema, palpitation, or syncope. Past Medical Hisory: As stated above. Allergies: TO PENICILLIN. Medications: At home include aspirin, Tegretol, [place], sertraline. Review of Systems: Negative. Family History: Positive for heart disease. Social History: Positive for tobacco use. Physical Examination: Vital signs: Stable. She was afebrile. HEENT: Negative. Neck: Supple with no bruit. Chest: Clear to auscultation and percussion. Cardiac: Revealed a regular rhythm and rate. No murmurs, gallops, or rubs. Abdomen: Benign. Extremities: Revealed no clubbing, cyanosis, or edema. Diagnostic Data: All within normal limits except for the EKG showing possible anterior ischemia. Impression And Plan: Ms. Camejo is a patient with unstable angina, abnormal EKG and hemoptysis after heparin infusion. I would prefer we postpone her catheterization until at least tomorrow morning wh ich will be 05/30/2020. I will hold her heparin for now. No Lovenox, just keep on aspirin, statin, low-dose beta-andrew. We will see what her heart catheterization shows in the morning before making further decisions. The patient understands the risk and the benefits of the procedure and she agree s to proceed. JACKI/PJ Voice ID: [id number] Report ID: [id number]
--- NOTE | 2020-05-29 17:12 | P.PN ---
Subjective Date of Service: 05/29/20 Primary Care Provider: Dr. Nixon Chief Complaint: unstable angina Patient seen by cardiology-Dr. Hawkins. She denies any chest pain at the moment. Physical Examination - Vital Signs Temperature: 97.7 F Blood Pressure: 130/73 Pulse: 70 Respirations: 18 Pulse Ox (%): 99 - Physical Exam General: Alert, In no apparent distress Neck: Supple, JVD not distended Respiratory: Other (No labored breathing) Cardiovascular: Regular rate/rhythm Gastrointestinal: Non-distended Musculoskeletal: No swelling Integumentary: No rashes Neurological: Other (No focal motor deficit) - Studies Laboratory Data (last 24 hrs) 05/28/20 19:10: PT 11.6, INR 1.01 05/28/20 19:10: WBC 7.70, Hgb 14.4, Hct 41.9, Plt Count 266 05/28/20 19:10: Sodium 138, Potassium 3.5, BUN 11, Creatinine 0.46 L, Glucose 85, Magnesium 2.1, Total Bilirubin 0.1 L, AST 14 L, ALT 24, Alkaline Phosphatase 136 H, Lipase 98 Assessment And Plan - Current Problems (Diagnosis) (1) Angina at rest Current Visit: Yes Status: Acute (2) Epilepsy Current Visit: Yes Status: Acute (3) Anxiety Current Visit: Yes Status: Chronic - Plan Patient seen by cardiology and plan for cardiac catheterization tomorrow. She developed epistaxis with heparin drip. Cannot anticoagulate or prescribed aspirin or plavix. Continue metoprolol. Continue antihypertensives. Check lipid profile. Continue antiepileptics.
[2020-05-29] MEDS: ATORVASTATIN 40 MG TAB PO SCH ×2 (20:23→21:00)
[2020-05-30] MEDS: MORPHINE 2 MG/ML SYR IV PRN ×2 (04:04→11:37)
[2020-05-30] MEDS ORDERED: NA CHLORIDE 0.9% 500 ML ONE (04:49)
--- NOTE | 2020-05-30 05:05 | EKG ---
Test Date: 2020-05-28 Test Time: 19:29:56 Network Control Supervisor: JAZZMINE MEASUREMENT RESULTS: Intervals: Rate: 60 VA: 140 QRSD: 92 QT: 438 QTc: 438 [place]: P: 38 VA: 140 QRS: 54 T: -21 INTERPRETIVE STATEMENTS: Normal sinus rhythm ST & T wave abnormality, consider inferior ischemia Abnormal ECG Compared to ECG 05/28/2020 16:35:08 No significant changes Electronically Signed On 05-30-20 05:03:48 PHYSICAL SCIENTIST by Kunal Hawkins
[2020-05-30] MEDS: hydroCHLOROthiazide 12.5 MG CAP PO SCH (05:24)
[2020-05-30] MEDS: METOPROLOL TAR 50 MG TAB PO SCH (05:25)
[2020-05-30 07:04] LABS: BUN Blood Urea Nitrogen 19 mg/dL (7-18); Bicarbonate 27 mmol/L (21-32); Glucose Level 100 mg/dL (74-106); Potassium 3.7 mmol/L (3.5-5.1); Sodium Level 142 mmol/L (136-145)
[2020-05-30] MEDS ORDERED: HEPA 1000U/500MLS 1,000 UNIT/500 ML BAG IV ONE (07:47)
[2020-05-30] MEDS ORDERED: FENTANYL CITR 100 MCG/2 ML ONE (08:40)
[2020-05-30] MEDS ORDERED: MIDAZOLAM HCL 5 ML ONE (08:40)
[2020-05-30] MEDS ORDERED: ATROPINE SULF 1 MG/10 ML SYR IV ONE (08:40)
[2020-05-30] MEDS ORDERED: NITROGLYCERIN 100 MCG/ML SYR (for cath lab use only) IV ONE (08:40)
[2020-05-30] MEDS ORDERED: NITROGLYCERIN/D5W 0 MG/0 ML BTL IV ONE (08:40)
[2020-05-30] MEDS ORDERED: NA CHLORIDE 0.9% 0 ML ONE (08:41)
[2020-05-30] MEDS: SERTRALINE HCL 100 MG TAB PO SCH (09:00)
[2020-05-30] MEDS: CARBAMAZEPINE 200 MG PO SCH (09:00)
[2020-05-30] MEDS ORDERED: MIDAZOLAM HCL 2 MG/2 ML INJ ONE ×2 (09:56→10:01)
--- NOTE | 2020-05-30 10:19 | OP ---
Date of Procedure: 05/30/2020 Surgeon: Kunal Hawkins MD Rock Splitter: Wilber. The patient will remain in the hospital for 2 hours for bedrest after the Angio-Seal and she will go home after which she will follow up in the office with Dr. Burroughs in the next 2 weeks. Indication: The patient admitted on 05/28/2020 with unstable angina. She was seen on 05/29/2020; ho wever, she had gotten heparin and had hemoptysis and wanted to delay her cardiac catheterization unti l today. Procedure In Detail: Today on 05/30/2020, she was brought to the laboratory veterinarian as an inpatient, prepped a nd draped in routine sterile fashion. Given fentanyl and Versed for sedation. Using the Seldinger t echnique and 10 cc of Xylocaine, a 6-Mosotho sheath introduced in the right common femoral artery succ essfully. Angiography there was normal. Angio-Seal was used to close the case. Paloma catheter le ft and right were used to cannulate the left main and the right main. She was found to have normal c oronaries, may be small in caliber, but no focal stenosis. There were no complications. Blood loss was 5 mL. Postoperative Diagnoses: Chest pain, positive EKG, normal heart catheterization. Plan: Plan is for medical therapy. Anesthesia: Total conscious sedation was 45 minutes. JACKI/PJ Voice ID: [id number] Report ID: [id number]
[2020-05-30 10:38] VITALS: O2SAT 95
[2020-05-30 12:09] VITALS: TEMP 96.8
--- NOTE | 2020-05-30 12:35 | P.DS ---
Admission Date: 05/28/20 Discharge Date: 05/30/20 Primary Care Provider: Dr. Nixon Disposition: ROUTINE DISCHARGE Discharge Condition: FAIR Reason for Admission: unstable angina Consultations: Cardiology-Dr. Hawkins. - Problems (1) Chest pain Current Visit: Yes Status: Acute Qualifiers: Chest pain type: unspecified Qualified Code(s): R07.9 - Chest pain, unspecified (2) Epilepsy Current Visit: Yes Status: Acute (3) Anxiety Current Visit: Yes Status: Chronic Brief History of Present Illness: 54-year-old woman with a history of anxiety from epilepsy presented to the emergency department with a complaint of chest pain described as pressure and tightness and radiating to the right shoulder and the left shoulder. Patient reported intermittent chest pain of a few months duration which she thought it was related to anxiety or heart burn. Patient saw Dr. Mancuso and was scheduled for a cardiac catheterization. She was started on metoprolol and hydrochlorothiazide recently. Her troponin in the ED was negative. Chest x-ray and CT CT dissection scan were unremarkable. EKG demonstrated ST T-wave abnormalities. Patient was start sudden treatment for ischemia which included heparin drip but she developed hemoptysis and heparin drip was discontinued. Patient hospitalized for ACS rule out. Hospital Course: Troponin trended negative. Patient was seen in consultation by cardiology-Dr. Hawkins. Cardiac catheterization was performed today which did not show any si gnificant coronary artery disease. Her other medications for anxiety and epilepsy were continued during the hospital stay. Patient cleared for discharge by cardiology. Smoking cessation adviced. All her medications are resumed on discharge. Vital Signs/Physical Exam: Temp Pulse Resp BP Pulse Ox 96.8 F 63 16 98/70 100 05/30/20 12:00 05/30/20 12:00 05/30/20 12:00 05/30/20 12:00 05/30/20 12:00 Laboratory Data at Discharge: WBC 7.70 K/uL (4.3-10.9) 05/28/20 19:10 Hgb 14.4 g/dL (12.0-15.0) 05/28/20 19:10 Hct 41.9 % (36.0-45.0) 05/28/20 19:10 Plt Count 266 K/uL (152-406) 05/28/20 19:10 PT 11.6 SECONDS (9.5-12.5) 05/28/20 19:10 INR 1.01 05/28/20 19:10 Sodium 142 mmol/L (136-145) 05/30/20 05:57 Potassium 3.7 mmol/L (3.5-5.1) 05/30/20 05:57 BUN 19 mg/dL (7-18) H 05/30/20 05:57 Creatinine 0.47 mg/dL (0.55-1.3) L 05/30/20 05:57 Glucose 100 mg/dL (74-106) 05/30/20 05:57 Magnesium 2.1 mg/dL (1.8-2.4) 05/28/20 19:10 Total Bilirubin 0.1 mg/dL (0.2-1.0) L 05/28/20 19:10 AST 14 U/L (15-37) L 05/28/20 19:10 ALT 24 U/L (12-78) 05/28/20 19:10 Alkaline Phosphatase 136 U/L (45-117) H 05/28/20 19:10 Troponin I < 0.02 ng/mL (0.0-0.045) 05/29/20 08:32 Lipase 98 U/L (73-393) 05/28/20 19:10 Home Medications: Carbamazepine [Tegretol Xr] 1 tab PO BID 05/29/20 Metoprolol Tartrate 1 tab PO BID 05/29/20 Sertraline [Zoloft*] 200 mg PO DAILY 05/29/20 hydroCHLOROthiazide [Hydrochlorothiazide] 1 tab PO DAILY 05/29/20 Diet: AHA Activity: Ad niraj Followup: Adrián Nixon DO [Primary Care Provider] - 1-2 Weeks Time spent managing pt's care (in minutes): 33
[2020-05-30 13:43] VITALS: BP 113/53
--- NOTE | 2020-05-31 05:18 | EKG ---
Test Date: 2020-05-29 Test Time: 05:02:22 Wrecking Supervisor: ANIKA MEASUREMENT RESULTS: Intervals: Rate: 73 NV: 146 QRSD: 82 QT: 408 QTc: 449 [place]: P: 69 NV: 146 QRS: 57 T: 45 INTERPRETIVE STATEMENTS: Normal sinus rhythm Nonspecific T wave abnormality Abnormal ECG Compared to ECG 05/28/2020 19:29:56 T-wave abnormality now present ST (T wave) deviation no longer present Possible ischemia no longer present Electronically Signed On 05-31-20 05:12:04 RECORDS MANAGEMENT ASSOCIATE by Kunal Hawkins
== END 2020-05-30 14:18 | disposition home or self-care (01) | DRG 287 ==
LOC: ER 18:02 → ERHOLD 21:19 → OBSVTOIN 21:19 → 4TH 05-29 03:48 → INTOOBSV 05-29 12:32 → OBSVTOIN 05-29 12:32
PROVIDERS: ADMIT Internal Medicine; ATTEND Internal Medicine
PROC: 4A023N7 Measurement of Cardiac Sampling and Pressure, Left Heart, Percutaneous Approach (ICD-10-PCS; principal; 2020-05-30)
PROC: B2111ZZ Fluoroscopy of Multiple Coronary Arteries using Low Osmolar Contrast (ICD-10-PCS; 2020-05-30)
DX: I20.0 Unstable angina (principal); R04.2 Hemoptysis; D68.32 Hemorrhagic disorder due to extrinsic circulating anticoagulants; I10 Essential (primary) hypertension; F41.9 Anxiety disorder, unspecified; F17.210 Nicotine dependence, cigarettes, uncomplicated; G40.909 Epilepsy, unspecified, not intractable, without status epilepticus; T45.515A Adverse effect of anticoagulants, initial encounter; R04.0 Epistaxis; Z79.82 Long term (current) use of aspirin; Z79.899 Other long term (current) drug therapy; Z88.0 Allergy status to penicillin; Z20.822 Contact with and (suspected) exposure to COVID-19
CPT/HCPCS: 36415; 71045; 71250; 74176; 80048; 80076; 81003; 83690; 83735; 83880; 84484; 85025; 85610; 93005; 93454; 99285; C1760; C1893; J0583; J1644; J2250; J2270; J2405; J3010; J7040; U0003

== ENCOUNTER 2023-05-15 10:28 | Day surgery (SDC) | payer BC, OTHER ==
[2023-05-13 16:37] LABS: Absolute Lymphocytes (CBC) 1.9 K/uL (0.7-4.9); Hematocrit 40.2 % (36.0-45.0); MCV 93.5 fL (80-100); MPV 8.2 fL (7.6-11.3); Platelets 298 thou/uL (152-406)
--- NOTE | 2023-05-14 16:07 | EKG ---
Test Date: 2023-05-13 Test Time: 17:25:06 Ssis Architect: GENA MEASUREMENT RESULTS: Intervals: Rate: 73 DE: 122 QRSD: 86 QT: 386 QTc: 425 [place]: P: 53 DE: 122 QRS: 54 T: 20 INTERPRETIVE STATEMENTS: Normal sinus rhythm Normal ECG Compared to ECG 05/29/2020 05:02:22 T-wave abnormality no longer present Electronically Signed On 05-14-23 16:04:40 PLATE FINISHER by Darrian Burroughs
[2023-05-15] MEDS ORDERED: Ringers Lactate 1,000 ML IV ONE (10:44)
[2023-05-15] MEDS ORDERED: propofoL 200 MG/20 ML VIAL IV ONE ×2 (12:57→13:28)
[2023-05-15] MEDS ORDERED: KETOROLAC 30 MG/ML INJ ONE (12:57)
[2023-05-15] MEDS ORDERED: ONDANSETRON 4 MG/2 ML VIAL ONE (12:57)
[2023-05-15] MEDS ORDERED: dexAMETHasone 10 MG/ML VIAL ONE (12:57)
[2023-05-15] MEDS ORDERED: FENTANYL CITR 100 MCG/2 ML ONE (12:58)
[2023-05-15] MEDS ORDERED: MIDAZOLAM HCL 2 MG/2 ML INJ ONE (12:58)
[2023-05-15] MEDS: CEFOXITIN SODIUM 2 GM/VIAL ONE (13:23)
[2023-05-15] MEDS ORDERED: KETAMINE HCL IN 0.9 % NACL 50 MG/5 ML SYRINGE IV ONE (13:35)
[2023-05-15] MEDS ORDERED: LIDOCAINE JELLY 2% 5 ML SYRINGE TOP ONE (13:55)
[2023-05-15] MEDS: LIDOCAINE 2% MPF 5 ML VIAL ONE (13:57)
[2023-05-15] MEDS: LIDOCAINE HCL/EPINEPHRINE 20 ML MDV ONE (14:03)
[2023-05-15] MEDS: BUPIVACAINE 0.25% PF 30 ML VIAL ONE (14:07)
--- NOTE | 2023-05-15 14:10 | P.OP ---
Preoperative diagnosis: Anal Hemorrhoids / Condyloma Postoperative diagnosis: Anal Hemorrhoids / Condyloma Primary procedure: Exam under anesthesia Secondary procedure: Excision of Anal Hemorrhoid, Condyloma Anesthesia: GETA + Local Estimated blood loss: <5cc Specimen: Anal Condyloma, Hemorrhoids Findings: Anal Condyloma, Hemorrhoids Complications: None Transferred to: Recovery Room Condition: Good
[2023-05-15] MEDS: HYDROCODONE/APAP 7.5/325 MG TAB ONE (14:53)
[2023-05-15 16:49] VITALS: BP 151/96; TEMP 98.1; O2SAT 96
--- NOTE | 2023-05-15 20:33 | OP ---
Date of Procedure: 05/15/2023 Surgeon: Niels Whelan MD, Preoperative Diagnosis: Anal hemorrhoids/condyloma. Postoperative Diagnosis: Anal hemorrhoids/condyloma. Procedures Performed: 1.Exam under anesthesia. 2.Excision of anal hemorrhoids. 3.Excision of anal condyloma. Anesthesia: General endotracheal plus local with 1% lidocaine with epinephrine. Estimated Blood Loss: 5 cc. Specimen: Anal condyloma and hemorrhoids. Findings: Anal condyloma in multiple areas at approximately the 2 o'clock position, 4 o'clock positi on, 6 o'clock position, and hemorrhoid at the 7 to 8 o'clock position. Complications: None. Disposition: Patient transferred to recovery room in good condition. Procedure In Detail: After informed consent was obtained, patient was prepped and draped in the usua l sterile fashion after adequate anesthesia was achieved. The patient remained in a lithotomy positi on. I performed anoscopy at this point and discovered there was no intrarectal involvement of any an al condylomatous disease. However, there were internal grade 2 internal hemorrhoids, and on external examination, there were external anal hemorrhoids at approximately 8 o'clock position. In addition, there were some exophytic type lesions of skin consistent with anal condyloma at several different p ositions as described above. I made elliptical incisions around all the anal condylomatous lesions, which were predominantly on the left side extending all the way to the 6 o'clock position. I then re moved these 3 separate ellipses of tissue using the LigaSure device after they were all pre-scored wi th the 15 blade circumferentially around. Specimens were sent off for pathologic examination. At th is point, the largest anal condyloma was approximately 0.5 cm in size. The areas were irrigated with sterile saline and closed with interrupted 4-0 chromic suture in an interrupted fashion. No hemosta tic measures were required, at this point. I then turned my attention to the external anal hemorrhoi d at approximately the 8 o'clock position. I used the LigaSure device to remove this. Once I scored the skin at this area, I removed this hemorrhoid, sent off for pathologic examination. This area al so had an interrupted 4-0 chromic suture placed at this point and the area was copiously irrigated on ce again. I then performed anoscopy one last time. No additional hemorrhoids to be addressed were a ppreciated. I then placed a Gelfoam soaked in lidocaine into the rectal vault and the procedure was completed. The patient tolerated the procedure without incident or complication, was transferred to PACU in good condition. All counts were correct at end of the case. EROS/PJ Voice ID: [id number] Report ID: [id number]
== END 2023-05-15 15:30 | disposition home or self-care (01) ==
LOC: OR 10:28
PROVIDERS: ATTEND Surgery
PROC: 0DBQXZX Excision of Anus, External Approach, Diagnostic (ICD-10-PCS; 2023-05-15)
PROC: 06BY0ZC Excision of Hemorrhoidal Plexus, Open Approach (ICD-10-PCS; principal; 2023-05-15 12:45)
DX: C44.520 Squamous cell carcinoma of anal skin (principal); D01.3 Carcinoma in situ of anus and anal canal; K64.1 Second degree hemorrhoids; A63.0 Anogenital (venereal) warts; K64.4 Residual hemorrhoidal skin tags
CPT/HCPCS: 36415; 80048; 85025; 88304; 88305; 93005; J0694; J1100; J2001; J2250; J2405; J2704; J3010; J7120

== ENCOUNTER 2023-11-20 11:14 | Day surgery (SDC) | payer BC, MEDICARE ==
[2023-11-20] MEDS ORDERED: CEFAZOLIN SODIUM 2 GM/VIAL ONE (11:25)
[2023-11-20] MEDS ORDERED: propofoL 200 MG/20 ML VIAL IV ONE (11:34)
[2023-11-20] MEDS ORDERED: MIDAZOLAM HCL 2 MG/2 ML INJ ONE (11:34)
[2023-11-20] MEDS ORDERED: LIDOCAINE 2% MPF 5 ML VIAL ONE (11:34)
[2023-11-20] MEDS ORDERED: FENTANYL CITR 100 MCG/2 ML ONE (11:34)
[2023-11-20] MEDS ORDERED: ONDANSETRON 4 MG/2 ML VIAL ONE (11:34)
[2023-11-20] MEDS: Ringers Lactate 1,000 ML IV ONE (11:49)
[2023-11-20] MEDS: CLINDAMYCIN 600MG/D5W 50 ML IV ONE (11:59)
[2023-11-20] MEDS: LIDOCAINE HCL/EPINEPHRINE 20 ML MDV ONE (11:59)
[2023-11-20] MEDS ORDERED: dexAMETHasone 4 MG/ML VIAL ONE (12:10)
--- NOTE | 2023-11-20 12:44 | P.OP ---
Preoperative diagnosis: Attention to Chemotherapy Catheter Postoperative diagnosis: Attention to Chemotherapy Catheter Primary procedure: Removal of RIGHT Internal Jugular Hemodialysis Catheter Anesthesia: GETA + Local Estimated blood loss: <5cc Specimen: Catheter Findings: Catheter had no sutures, not properly collared, seperated Complications: None Transferred to: Recovery Room Condition: Good
[2023-11-20] MEDS: FENTANYL CITR 100 MCG/2 ML ONE (12:59)
--- NOTE | 2023-11-20 13:06 | RAD REPORT ---
EXAM DESCRIPTION: RAD - Chest Single View - 11/20/2023 1:01 pm CLINICAL HISTORY: s/p chemo port removal Chest pain. COMPARISON: Chest Single View dated 05/28/2020 FINDINGS: Portable technique limits examination quality. The lungs are grossly clear. The heart is normal in size. No displaced fractures. IMPRESSION: No acute intrathoracic process suspected.
[2023-11-20] MEDS: HYDROCODONE/APAP 7.5/325 MG TAB ONE (13:45)
[2023-11-20 14:32] VITALS: TEMP 97.5; O2SAT 100
[2023-11-20 14:36] VITALS: BP 153/88
--- NOTE | 2023-11-20 14:36 | EKG ---
Test Date: 2023-11-20 Test Time: 08:26:55 Program Medical Director: GENA MEASUREMENT RESULTS: Intervals: Rate: 80 NE: 102 QRSD: 78 QT: 372 QTc: 429 [place]: P: 61 NE: 102 QRS: 73 T: 36 INTERPRETIVE STATEMENTS: Sinus rhythm with short NE Otherwise normal ECG Compared to ECG 05/13/2023 17:25:06 Short NE interval now present Electronically Signed On 11-20-23 14:35:36 CDT by Darshan Ybarra
--- NOTE | 2023-11-20 22:15 | OP ---
Date of Procedure: 11/20/2023 Surgeon: Niels Whelan MD, Preoperative Diagnosis: Attention to chemotherapy catheter port. Postoperative Diagnosis: Attention to chemotherapy catheter port. Procedure Performed: Removal of a right internal jugular Port-A-Cath. Anesthesia: General endotracheal plus local 1% lidocaine. Estimated Blood Loss: Less than 5 cc. Specimen: Catheter. Findings: 1.Catheter had no sutures securing it. 2.Lock collar from catheter to tubing was not properly connected. 3.Catheter had some separation from the subcutaneous port, requiring retrieval of the catheter. Complications: None immediate. The patient was transferred to recovery room in good condition. Procedure In Detail: After informed consent was obtained, the patient was brought to the operating r oom, prepped and draped in usual sterile fashion. After adequate anesthesia was achieved, the patien t was placed in steep Trendelenburg position. I made an incision overlying the previous Port-A-Cath, which was placed in the right subclavian position, subcutaneous port being in infraclavicular positi on on the right. After dissecting down, I circumferentially dissected around the hemodialysis port. There were no sutures placed at this point that were visualized. The port came up easily. At this point, I dissected back toward the collar, which was found to be disconnected from the subcutaneous p ort with the catheter being partially pulled away from this. I therefore clamped the catheter and re moved the port and then pulled the catheter out separately, which was embedded in the vein. There wa s no breakage, and the catheter appeared intact, and I therefore removed the catheter in its entirety as well as the lock collar, which was not properly applied. I then kept the patient in steep Trende lenburg position, placed an interrupted 3-0 Vicryl suture at the exit site and the vascular entrance. At that point, irrigated the area and then closed the deep dermal layers with 3-0 Vicryl and the sk in was closed with a 4-0 Monocryl in a running fashion and Dermabond was placed over top. Pressure w as held at the neck and collar, both at the exit site and entrance site in the jugular vein for appro ximately 5 minutes while the patient remained in steep Trendelenburg position and then was sat up and pressure was held for an additional 2 minutes and ultimately removed at that point. The patient tobi erated the procedure without incident or complication, and transferred to PACU in good condition. Al l counts were correct at the end of the case. EROS/PJ Voice ID: [id number] Report ID: [id number]
== END 2023-11-20 14:30 | disposition home or self-care (01) ==
LOC: OR 11:14
PROVIDERS: ATTEND Surgery
PROC: 0JPT0WZ Removal of Totally Implantable Vascular Access Device from Trunk Subcutaneous Tissue and Fascia, Open Approach (ICD-10-PCS; principal; 2023-11-20 12:30)
DX: Z45.2 Encounter for adjustment and management of vascular access device (principal); C20 Malignant neoplasm of rectum
CPT/HCPCS: 93005; 88300; 71045; 36590; J2704; J1100; J2001; J2250; J3010 ×2; J2405; J7120